=== PATIENT | male | born 2000 | race Caucasian/White ===

== ENCOUNTER 2022-06-19 14:11 | Emergency (ER) | payer OTHER ==
[~2022-06-19] VITALS: Ht 182.8 cm; Wt 102.1 kg
[2022-06-19 14:55] LABS: BASO % 0.5 % (0.0-1.0); HEMATOCRIT 44.9 % (42.0-52.0); LYMPH # 0.8 10*3/uL (1.3-4.4); LYMPH % 14.5 % (27.0-41.0); MEAN CELL VOLUME 88.4 fl (80.0-94.0); MEAN CORPUSCULAR HGB 31.3 pg (27.0-31.0); MEAN CORPUSCULAR HGB CONC 35.4 g/dl (33.0-37.0); MONO % 17.3 % (3.0-9.0); NEUT # 3.8 10*3/uL (2.3-7.9); NEUT % 67.3 % (47.0-73.0); PLATELET COUNT AUTOMATED 191 10*3/uL (130-400); RED BLOOD COUNT 5.08 10*6/uL (4.50-5.90); RED CELL DISTRI WIDTH 12.2 % (0-14.5); WHITE BLOOD COUNT 5.7 10*3/uL (4.8-10.8)
[2022-06-19 15:09] LABS: ALKALINE PHOSPHATASE 71 U/L (45-117); BUN 13 mg/dl (7-24); CHLORIDE 104 mmol/L (98-107); CREATININE 1.03 mg/dL (0.70-1.30); POTASSIUM 3.6 mmol/L (3.5-5.1); SGOT/AST 21 IU/L (3-35); SGPT/ALT 34 U/L (12-78); SODIUM 136 mmol/L (136-145); TOTAL PROTEIN 7.7 gm/dL (6.4-8.2)
[2022-06-19] MEDS ORDERED: TAMIFLU 75MG CA75 MG PO (15:57)
== END 2022-06-19 16:35 | disposition home or self-care (01) ==
LOC: ED 14:11
PROVIDERS: Family Medicine
DX: J10.1 Influenza due to other identified influenza virus with other respiratory manifestations (principal); Z20.822 Contact with and (suspected) exposure to COVID-19

== ENCOUNTER 2022-12-27 17:30 | Emergency (ER) | payer OTHER ==
[~2022-12-27] VITALS: Ht 182.8 cm; Wt 90.7 kg
[~2022-12-27 17:30] MED LIST: TAMIFLU 75MG CA75 MG PO
[2022-12-27] MEDS ORDERED: PREDNISONE20 M1 PO (19:33)
[2022-12-27] MEDS ORDERED: METHOCARBAMOL500 M1 PO (19:33)
== END 2022-12-27 19:51 | disposition home or self-care (01) ==
LOC: ED 17:30
DX: S29.012A Strain of muscle and tendon of back wall of thorax, initial encounter (principal); X50.9XXA Other and unspecified overexertion or strenuous movements or postures, initial encounter; Y93.89 Activity, other specified; Y92.89 Other specified places as the place of occurrence of the external cause; Y99.8 Other external cause status

== ENCOUNTER 2024-08-18 12:45 | Emergency (ER) | payer OTHER ==
[~2024-08-18] VITALS: Ht 182.8 cm; Wt 95.3 kg
[~2024-08-18 12:45] MED LIST changes: +METHOCARBAMOL500 M1 PO; +PREDNISONE20 M1 PO
[2024-08-18] MEDS ORDERED: LORazepam 1 MG TAB PO ONE (13:20)
[2024-08-18] MEDS ORDERED: SERTRALINE HYDR50 MG PO (13:21)
[2024-08-18] MEDS ORDERED: TRAZODONE50 MG PO (13:21)
== END 2024-08-18 14:49 | disposition home or self-care (01) ==
LOC: ED 12:45
DX: F41.9 Anxiety disorder, unspecified (principal)

== ENCOUNTER 2024-11-19 18:02 | Emergency (ER) | payer OTHER ==
[~2024-11-19] VITALS: Ht 182.8 cm; Wt 104.3 kg
[~2024-11-19 18:02] MED LIST changes: +SERTRALINE HYDR50 MG PO; +TRAZODONE50 MG PO
[2024-11-19] MEDS ORDERED: SERTRALINE HYD100 MG PO (18:11)
[2024-11-19] MEDS ORDERED: Acetaminophen/Oxycodone 5 MG/325 MG TABLET PO ONE (18:20)
[2024-11-19] MEDS ORDERED: MELOXICAM15 MG PO (18:23)
== END 2024-11-19 18:39 | disposition home or self-care (01) ==
LOC: ED 18:02
DX: M72.2 Plantar fascial fibromatosis (principal); M76.62 Achilles tendinitis, left leg; M76.61 Achilles tendinitis, right leg; Z79.899 Other long term (current) drug therapy

== ENCOUNTER 2025-01-25 20:25 | Emergency (ER) | payer SELFPAY ==
[~2025-01-25] VITALS: Ht 182.8 cm; Wt 104.3 kg
[~2025-01-25 20:25] MED LIST changes: +MELOXICAM15 MG PO; +SERTRALINE HYD100 MG PO
[2025-01-25] MEDS ORDERED: ZOLOFT100 MG PO (20:34)
[2025-01-25] MEDS ORDERED: SODIUM CHLORIDE 0.9% 1,000 ML IV ONE ×2 (20:45→23:00)
[2025-01-25 20:52] LABS: BASO # 0.1 10*3/uL (0.0-0.1); BASO % 0.7 % (0.0-1.0); EOS # 0.1 10*3/uL (0.0-0.4); EOS % 0.5 % (1.0-4.0); HEMATOCRIT 49.9 % (42.0-52.0); MEAN CELL VOLUME 83.6 fl (80.0-94.0); MEAN CORPUSCULAR HGB 29.8 pg (27.0-31.0); MEAN CORPUSCULAR HGB CONC 35.7 g/dl (33.0-37.0); MEAN PLATELET VOLUME 10.1 fl (9.6-12.3); MONO % 10.6 % (3.0-9.0); NEUT # 5.6 10*3/uL (2.3-7.9); NEUT % 58.9 % (47.0-73.0); PLATELET COUNT AUTOMATED 405 10*3/uL (130-400); RED BLOOD COUNT 5.97 10*6/uL (4.50-5.90); RED CELL DISTRI WIDTH 11.8 % (0-14.5); WHITE BLOOD COUNT 9.5 10*3/uL (4.8-10.8)
[2025-01-25 21:13] LABS: BUN 25 mg/dl (9-23); CHLORIDE 94 mmol/L (98-107); CPK 258 U/L (34-171); POTASSIUM 3.5 mmol/L (3.4-5.1)
[2025-01-25 22:49] LABS: BILIRUBIN Negative (Negative); BLOOD Negative (Negative); CLARITY Clear (Clear); COLOR Yellow (Yellow); GLUCOSE Negative (Negative); KETONE 1+ (Negative); LEUKO ESTERASE Negative (Negative); NITRITE Negative (Negative); PH 5.5 (4.5-8.0); SPECIFIC GRAVITY 1.025 (1.001-1.030)
[2025-01-25 23:29] LABS: BACTERIA TRACE
== END 2025-01-26 00:21 | disposition home or self-care (01) ==
LOC: ED 20:25
PROVIDERS: Internal Medicine
DX: T67.5XXA Heat exhaustion, unspecified, initial encounter (principal); N17.9 Acute kidney failure, unspecified; E87.8 Other disorders of electrolyte and fluid balance, not elsewhere classified; R74.8 Abnormal levels of other serum enzymes; F41.9 Anxiety disorder, unspecified; Z79.899 Other long term (current) drug therapy; X58.XXXA Exposure to other specified factors, initial encounter; Y93.89 Activity, other specified; Y92.89 Other specified places as the place of occurrence of the external cause; Y99.8 Other external cause status

== ENCOUNTER 2025-01-26 17:26 | Emergency (ER) | payer SELFPAY ==
[~2025-01-26] VITALS: Wt 104.3 kg
[~2025-01-26 17:26] MED LIST changes: +ZOLOFT100 MG PO
[2025-01-26] MEDS ORDERED: Ondansetron Hydrochloride 4 MG/2 ML VIAL IV ONE (18:45)
[2025-01-26] MEDS ORDERED: HYDROmorphONE Hydrochloride 0.5 MG/0.5 ML SYRINGE IV ONE (18:45)
[2025-01-26] MEDS ORDERED: SODIUM CHLORIDE 0.9% 1,000 ML IV ONE (18:45)
[2025-01-26 19:08] LABS: BASO # 0.1 10*3/uL (0.0-0.1); EOS # 0.1 10*3/uL (0.0-0.4); EOS % 1.9 % (1.0-4.0); HEMATOCRIT 39.5 % (42.0-52.0); MEAN CORPUSCULAR HGB 30.6 pg (27.0-31.0); MEAN CORPUSCULAR HGB CONC 35.2 g/dl (33.0-37.0); MEAN PLATELET VOLUME 10.4 fl (9.6-12.3); MONO # 0.7 10*3/uL (0.1-1.0); MONO % 9.1 % (3.0-9.0); NEUT % 55.7 % (47.0-73.0); RED BLOOD COUNT 4.54 10*6/uL (4.50-5.90); RED CELL DISTRI WIDTH 12.1 % (0-14.5); WHITE BLOOD COUNT 7.2 10*3/uL (4.8-10.8)
[2025-01-26 19:10] LABS: PLATELET COUNT AUTOMATED 255 10*3/uL (130-400)
[2025-01-26 19:27] LABS: BUN 18 mg/dl (9-23); CHLORIDE 101 mmol/L (98-107); POTASSIUM 3.4 mmol/L (3.4-5.1)
[2025-01-26 19:32] LABS: CPK 155 U/L (34-171)
[2025-01-26 20:12] LABS: BILIRUBIN Negative (Negative); BLOOD Negative (Negative); CLARITY Clear (Clear); COLOR Yellow (Yellow); GLUCOSE Negative (Negative); KETONE Trace (Negative); LEUKO ESTERASE Negative (Negative); NITRITE Negative (Negative); SPECIFIC GRAVITY 1.025 (1.001-1.030); UROBILINOGEN >= 8.0 E.U./dl (0.0-1.0)
[2025-01-26 20:34] LABS: MUCOUS TRACE; RBC 0-2 rbc/hpf (0-2); WBC 0-2 wbc/hpf (0-5)
[2025-01-26] MEDS ORDERED: Ketorolac Tromethamine 30 MG/ML VIAL IV ONE (21:35)
== END 2025-01-27 01:55 | disposition home or self-care (01) ==
LOC: ED 17:26
PROVIDERS: Nurse Practitioner Family
DX: R10.9 Unspecified abdominal pain (principal); F41.9 Anxiety disorder, unspecified; Z79.899 Other long term (current) drug therapy

== ENCOUNTER 2025-02-08 12:24 | Emergency (ER) | payer SELFPAY ==
[~2025-02-08] VITALS: Ht 182.8 cm; Wt 104.3 kg
[2025-02-08] MEDS ORDERED: Ondansetron Hydrochloride 4 MG/2 ML VIAL IV ONE (12:45)
[2025-02-08] MEDS ORDERED: SODIUM CHLORIDE 0.9% 1,000 ML IV ONE (12:45)
[2025-02-08] MEDS ORDERED: diazePAM 5 MG TAB PO ONE ×2 (12:45→14:40)
[2025-02-08 12:59] LABS: BASO # 0.1 10*3/uL (0.0-0.1); BASO % 0.6 % (0.0-1.0); EOS # 0.1 10*3/uL (0.0-0.4); EOS % 0.7 % (1.0-4.0); MEAN CELL VOLUME 85.7 fl (80.0-94.0); MEAN CORPUSCULAR HGB 30.0 pg (27.0-31.0); MEAN PLATELET VOLUME 9.9 fl (9.6-12.3); MONO # 0.5 10*3/uL (0.1-1.0); MONO % 5.0 % (3.0-9.0); NEUT # 7.3 10*3/uL (2.3-7.9); NEUT % 81.1 % (47.0-73.0); NUCLEATED RED BLOOD CELL 0.0 % (0.0-0.0); NUCLEATED RED BLOOD CELL 0.0 10*3/uL (0.0-0.0); PLATELET COUNT AUTOMATED 333 10*3/uL (130-400); RED CELL DISTRI WIDTH 12.0 % (0-14.5)
[2025-02-08 13:18] LABS: BUN 12 mg/dl (9-23)
[2025-02-08 14:16] LABS: BILIRUBIN Negative (Negative); BLOOD Negative (Negative); CLARITY Clear (Clear); COLOR Dark Yellow (Yellow); KETONE 3+ (Negative); LEUKO ESTERASE Trace (Negative); NITRITE Negative (Negative); PH 7.5 (4.5-8.0); SPECIFIC GRAVITY 1.025 (1.001-1.030); UROBILINOGEN 1.0 E.U./dl (0.0-1.0)
[2025-02-08 14:24] LABS: URINE AMPHETAMINES Negative (1000ng/ml); URINE BARBITURATES Negative (200ng/ml); URINE BENZODIAZEPINES Negative (200ng/ml); URINE CANNABINOIDS (THC) Positive (50ng/ml); URINE COCAINE Negative (300ng/ml); URINE METHADONE Negative (300ng/ml); URINE OPIATES Negative (300ng/ml); URINE PHENCYCLIDINE Negative (25ng/ml)
[2025-02-08 14:28] LABS: BACTERIA TRACE; MUCOUS 2+; RBC 0-2 rbc/hpf (0-2)
[2025-02-08] MEDS ORDERED: Ondansetron4 MG PO (15:43)
== END 2025-02-08 16:13 | disposition home or self-care (01) ==
LOC: ED 12:24
PROVIDERS: Nurse Practitioner Family
DX: F11.93 Opioid use, unspecified with withdrawal (principal); R11.2 Nausea with vomiting, unspecified; G47.00 Insomnia, unspecified; Z79.899 Other long term (current) drug therapy